=== PATIENT | male | born 1945 | race Caucasian/White ===

== ENCOUNTER → 2020-09-25 16:15 | Outpatient (CLI) | payer MEDICARE, OTHER, SELFPAY ==
[2020-09-25 17:47] LABS: BNP,B-Type NATRIURETIC PEPTIDE 11.2 pg/mL (0-100)
== END ==
PROVIDERS: PCP Family Medicine; Visit Provider Family Medicine
DX: R06.00 Dyspnea, unspecified (principal)
CPT/HCPCS: 83880

== ENCOUNTER → 2020-10-02 11:27 | Outpatient (CLI) | payer MEDICARE, OTHER, SELFPAY ==
--- NOTE | 2020-10-02 11:31 | RAD_ITS ---
STUDY: X-RAY CHEST REASON FOR EXAM: Male, 75 years old. WHEEZING TECHNIQUE: PA and lateral views of the chest. COMPARISON: None. FINDINGS: The lungs are clear and expanded. There is no demonstrated pleural abnormality. Normal size heart. Normal mediastinum and cecelia. Normal visualized pulmonary arteries. Normal visualized aortic arch and descending thoracic aorta. Normal visualized thoracic spine. Normal visualized ribs, clavicles, and shoulders. There is no demonstrated abnormality of the visualized soft tissue structures of the upper abdomen. RAD/Chest PA and Lateral IMPRESSION: Normal x-ray examination of the chest. Electronically Signed: Jayant Lott MD at 9:14 EST Tel , Service support ,
== END ==
PROVIDERS: PCP Family Medicine; Referring Provider Family Medicine; Visit Provider Family Medicine
DX: R06.2 Wheezing (principal)
CPT/HCPCS: 71046

== ENCOUNTER → 2020-12-14 08:52 | Outpatient (CLI) | payer MEDICARE, OTHER, SELFPAY ==
--- NOTE | 2020-12-15 10:02 | PFT ---
INTRODUCTION: The patient is a 75-year-old male that presents for pulmonary function studies secondary to a diagnosis of wheezing. Respiratory therapy reports good patient effort. Bronchodilators were used during testing. INTERPRETATION: Forced expiration spirometry demonstrates no evidence of a large airways obstructive ventilatory defect. There was no significant response to aerosolized bronchodilators. Spirograms are of good quality and plateau normally. Body plethysmography was performed and reveals lung volumes to be within normal limits. Diffusing capacity by single breath CO is similarly within normal limits. IMPRESSION: Grossly normal pulmonary function studies.
== END ==
PROVIDERS: PCP Family Medicine; Referring Provider Family Medicine; Visit Provider Family Medicine
DX: R06.2 Wheezing (principal)
CPT/HCPCS: 94060; 94726; 94729

== ENCOUNTER → 2021-03-30 08:04 | Outpatient (CLI) | payer MEDICARE, OTHER, SELFPAY ==
[2021-03-30 07:10] VITALS: BMI 32.6
[2021-03-30 08:29] LABS: Absolute Lymphocyte Count 1.54 X10^3/uL (0.83-4.51); Basophil# 0.05 X10^3/uL; Basophil% 0.8 % (0-1); Eosinophil# 0.21 X10^3/uL; Eosinophils% 3.3 % (0-5); Hematocrit 44.8 % (40-54); Hemoglobin 15.7 g/dL (13.0-16.5); Lymphocyte # 1.54 X10^3/ul (0.83-4.51); Lymphocyte % 24.4 % (19-41); Mean Corpuscular Hgb 31.4 pg (27.0-32.0); Mean Corpuscular Volume 89.6 fL (80-94); Mean Platelet Vol. 10.1 fl (6.2-12.0); Monocyte# 0.53 X10^3/uL; Monocyte% 8.4 % (0-10); NRBC Flagged by Analyzer 0 % (0-5); Neutrophil # 3.98 X10^3/uL (2.7-7.7); Neutrophil % 62.9 % (47-70); Platelet Count 231 K/mm3 (150-450); RBC Distribution Width CV 13.2 % (11.6-14.6); RBC Distribution Width SD 43.1 fl (35.1-43.9); White Blood Count 6.3 K/mm3 (4.4-11.0)
[2021-04-02 08:08] LABS: Alternaria tenuis <0.10 kU/L (Class 0); Ash, White <0.10 kU/L (Class 0); Aspergillus fumigatus <0.10 kU/L (Class 0); Bermuda Grass <0.10 kU/L (Class 0); Birch <0.10 kU/L (Class 0); Black Walnut <0.10 kU/L (Class 0); Cat Hair / Dander,Stand <0.10 kU/L (Class 0); Cedar, Mountain <0.10 kU/L (Class 0); Cladosporium herbarum <0.10 kU/L (Class 0); Cockroach, American <0.10 kU/L (Class 0); Cottonwood <0.10 kU/L (Class 0); D farinae Mite <0.10 kU/L (Class 0); D pteronyssinus <0.10 kU/L (Class 0); Dog Epithelia <0.10 kU/L (Class 0); Elm, American White <0.10 kU/L (Class 0); Immunoglobulin E 27 IU/mL (6-495); Maple/Box Elder <0.10 kU/L (Class 0); Mulberry, White <0.10 kU/L (Class 0); Oak, White <0.10 kU/L (Class 0); Pecan <0.10 kU/L (Class 0); Penicillium Notatum <0.10 kU/L (Class 0); Pigweed, Rough <0.10 kU/L (Class 0); Ragweed, Short/Common <0.10 kU/L (Class 0); Russian Thistle <0.10 kU/L (Class 0); Sheep Sorrel <0.10 kU/L (Class 0); Sycamore, American <0.10 kU/L (Class 0); Timothy Grass <0.10 kU/L (Class 0)
[2021-04-02 08:40] LABS: Mouse Urine <0.10 kU/L (Class 0)
[2021-04-02 20:07] LABS: Aspirgillus flavus Negative (Neg:<1:1); Aspirgillus fumigatus Negative (Neg:<1:1); Aspirgillus niger Negative (Neg:<1:1)
[2021-04-02 20:34] LABS: Immunoglobulin E 27 IU/mL (6-495)
== END ==
PROVIDERS: PCP Family Medicine; Referring Provider Internal Medicine Critical Care Medicine; Visit Provider Internal Medicine Critical Care Medicine
DX: R06.2 Wheezing (principal)
CPT/HCPCS: 36415; 82785; 85025; 86003; 86606

== ENCOUNTER → 2021-04-12 08:03 | Outpatient (CLI) | payer MEDICARE, OTHER, SELFPAY ==
[2021-03-30 07:10] VITALS: BMI 32.6
--- NOTE | 2021-04-12 15:16 | PFTCOMP ---
COMPLETE PULMONARY FUNCTION TEST INTERPRETATION Brief HPI: Patient is a 76 year old male, currently under the care of Dr. Redmond, who presents to [facility] for complete pulmonary function tests secondary to diagnosis of wheezing. Respiratory therapist reports good effort and reproducible results. Interpretation: Forced expiration spirometry shows no large airways obstructive ventilatory defect with an FEV1 of 97% predicted. There is no significant bronchodilator response by strict ATS criteria. Spirograms are of good quality and plateau normally. The respiratory flow volume loop shows a normal pattern. Lung volumes by body plethysmography show a normal total lung capacity at 5.95 L, 100% predicted. All other lung volumes are within normal limits. Diffusion capacity by carbon monoxide is normal at 112% predicted. The airway resistance is normal. Compared to previous pulmonary function tests from 12/14/2020, there is been a significant improvement in air trapping with hyperinflation. Impression: These pulmonary function tests are within normal limits
== END ==
PROVIDERS: PCP Family Medicine; Referring Provider Internal Medicine Critical Care Medicine; Visit Provider Internal Medicine Critical Care Medicine
DX: R06.2 Wheezing (principal)
CPT/HCPCS: 94060; 94726; 94729

== ENCOUNTER → 2021-05-07 | Outpatient (CLI) | payer MEDICARE, OTHER, SELFPAY | END | disposition home or self-care (01) | LOC: LABSPEC 08:13 | PROVIDERS: PCP Family Medicine; Visit Provider Family Medicine | DX: U07.1 COVID-19 (principal) | CPT/HCPCS: 87635; U0005; U0003 ==

== ENCOUNTER 2021-11-29 09:58 | Outpatient (CLI) | payer MEDICARE, OTHER, SELFPAY ==
--- NOTE | 2021-11-29 10:01 | RAD_ITS ---
STUDY: X-RAY - LUMBAR SPINE REASON FOR EXAM: Male, 76 years old. CHRONIC LOW BACK PAIN TECHNIQUE: 5 view(s) of the lumbar spine were obtained. COMPARISON: None FINDINGS: Normal lumbar lordosis. There is no substantial scoliosis. There is a normal alignment of the vertebrae. Multilevel degenerative changes with facet hypertrophy worst in the lower lumbar spine contributing to neuroforaminal narrowing worst at L5-S1. Normal vertebral bodies and endplates. Normal disc space heights. Atherosclerotic calcifications. Mild to moderate increased stool. RAD/L/S Spine Min 4 Views IMPRESSION: No acute fracture or subluxation. Multilevel degenerative changes worst at L5-S1. Electronically Signed: Torrey Kirk MD at 2:35 EDT ,
== END 2021-11-29 23:59 | disposition home or self-care (01) ==
LOC: MTRAD 10:00
PROVIDERS: PCP Family Medicine; Referring Provider Family Medicine; Visit Provider Family Medicine
DX: M54.50 Low back pain, unspecified (principal); G89.29 Other chronic pain
CPT/HCPCS: 72110

== ENCOUNTER 2022-09-03 06:20 | Emergency (ER) | payer MEDICARE, OTHER, SELFPAY ==
[2022-09-03 06:21] VITALS: PULSE 75; RESP 15; TEMP 36.4; O2SAT 98; BMI 34.0
[2022-09-03 06:22] VITALS: BP 132/78; PULSE 69; RESP 15; TEMP 36.4; O2SAT 98
--- NOTE | 2022-09-03 06:37 | EDS_ITS ---
HPI <Dr. Sean Diaz MD - Last Filed: 09/05/22 09:22> History of Present Illness Chief Complaint: Complaint Detail of Chief Complaint: Concern for bladder infection Informant: patient Onset/Context/Timing Onset: Yesterday Context: Sudden Onset Timing: Continuous Quality: Pressure fullness suprapubic area and difficulty urinating Current Severity: Mild Maximum Severity: Moderate Worsened by: Palpation Relieved by: Nothing Associated Symptoms Associated Symptoms: Denies fever or chills. Endorses nausea without vomiting. Narrative Narrative: Patient is a 77-year-old male with history of BPH, hypercholesterolemia who presents because of concern for urinary tract infection. He states he has not had a urinary tract infection in some time. He denies history of prostatitis. He denies scrotal pain or swelling. He denies headache, visual, ocular auditory symptoms. He denies cardiac or respiratory symptoms. He denies vomiting or diarrhea. He states he has had difficulty urinating the past 24 to 48 hours. Prior similar symptoms: Yes Recent Illness/Hospitalization: No PFSH <Dr. Sean Diaz MD - Last Filed: 09/05/22 09:22> [facility] Medical History (Updated 09/03/22 @ 08:[address] Vel Aragon MD) Diverticulitis Urinary tract infection Home Medications atorvastatin 10 mg tablet 10 mg PO DAILY 03/23/21 [History Last Taken Unknown] d-mannose 500 mg capsule 500 mg PO DAILY 03/30/21 [History Last Taken Unknown] pyridoxine (vitamin B6) 100 mg tablet (Vitamin B-6) 100 mg PO DAILY 03/30/21 [History Last Taken Unknown] tamsulosin 0.4 mg capsule 0.4 mg PO BID 03/30/21 [History Last Taken Unknown] cetirizine 10 mg capsule 10 mg PO HS #30 caps 07/06/21 [Rx Last Taken Unknown] montelukast 10 mg tablet 10 mg PO QPM #90 tabs 08/03/22 [Rx Last Taken Unknown] ciprofloxacin HCl 500 mg tablet (Cipro) 500 mg PO BID #20 tabs 09/03/22 [Rx Last Taken Unknown] metronidazole 500 mg tablet 500 mg PO TID #30 tabs 09/03/22 [Rx Last Taken Unknown] oxycodone-acetaminophen 5 mg-325 mg tablet (Percocet) 1 tab PO Q8H PRN pain 3 days #12 tabs 09/03/22 [Rx Last Taken Unknown] Allergy/AdvReac Type Severity Reaction Status Date / Time No Known Allergies Allergy Unverified 08/03/22 13:39 Family History Sister Cancer Breast, Colon Brother Cancer Prostate Surgical History History of total knee replacement (TKR) Social History (Updated 09/03/22 @ 06:[address] Sean Diaz MD) household members: spouse Smoking Status: Never smoker substance use type: does not use ROS <Dr. Sean Diaz MD - Last Filed: 09/05/22 09:22> ROS ED Constitutional Constitutional ED: Denies chills, fever(s), subjective or sweats Eyes Eyes: Denies blurry vision or change in vision ENT ENT ED: Denies rhinorrhea or sore throat Cardiovascular Cardiovascular: Denies chest pain or palpitations Respiratory/Chest Respiratory/Chest: Denies cough, dyspnea or dyspnea on exertion Gastrointestinal Gastrointestinal: Reports abdominal pain and nausea; Denies diarrhea or vomiting Genitourinary Genitourinary ED: Reports other Details: Per HPI narrative ; Denies dysuria, hematuria or urinary frequency Musculoskeletal Musculoskeletal: Denies arthralgias or back pain Integumentary Denies Abrasions or rash Neurologic Neurologic: Denies paresthesias or weakness Hematologic/Lymphatic Hematologic/Lymphatic: Reports systems reviewed and no addt'l complaints, except as documented EXAM <Dr. Sean Diaz MD - Last Filed: 09/05/22 09:22> Physical Exam Const Vital Signs: 09/03/22 06:21 09/03/22 06:22 Temperature 97.6 F L 97.6 F L Temperature Source Temporal Temporal Pulse Rate 75 69 Respiratory Rate 15 15 Blood Pressure 132/78 H Blood Pressure Mean 96 Pulse Ox 98 98 Oxygen Delivery Method Room Air Room Air Positive well nourished, well developed and obese Constitutional Narrative: Patient is hard of hearing. General Appearance ED: well developed and NAD; Negative for cyanotic, diaphoretic or pallor Nutritional Appearance: obese HEENT Reports moist mucous membranes HEENT Narrative: Head is atraumatic normocephalic. Ears are normal. Nares patent. Uvula is midline. Eyes PERRL and EOMs intact bilaterally General Eye ED: Negative for pale conjunctiva or scleral icterus Neck no lymphadenopathy, supple and no JVD Chest Wall inspection of chest normal and palpation of chest normal Resp normal respiratory effort and clear to auscultation bilaterally Cardio regular rate, regular rhythm, S1 normal heart sound, S2 normal heart sound and no murmurs GI normal to inspection, nondistended, normoactive bowel sounds and no masses; Negative for non-tender, non-distended or hepatosplenomegaly GI Narrative: Slight tympany to percussion. Palpation: soft and tender suprapubic Back/Spine no CVA tenderness Thoracic Spine / Upper Back: Negative for thoracic spinal tenderness Lumbar Spine / Lower Back: Negative for lumbar spinal tenderness Extremity normal to inspection General Extremety ED: Negative for edema or tenderness General Extremity: Negative for edema Neuro oriented x3, CN's II-XII intact bilaterally and no sensory deficits noted Sensorium / Orientation: alert Psych mental status grossly normal Skin no rashes or lesions noted, no wounds and skin turgor normal General Skin Exam: Negative for jaundice or pallor <Dr. Vel Aragon MD - Last Filed: 09/03/22 08:10> Physical Exam Const Vital Signs: 09/03/22 06:21 09/03/22 06:22 Temperature 97.6 F L 97.6 F L Temperature Source Temporal Temporal Pulse Rate 75 69 Respiratory Rate 15 15 Blood Pressure 132/78 H Blood Pressure Mean 96 Pulse Ox 98 98 Oxygen Delivery Method Room Air Room Air MDM <Dr. Sean Diaz MD - Last Filed: 09/05/22 09:22> [facility] MDM Narrative Medical decision making narrative: With history of BPH need to assess for urinary retention will obtain bladder scan. Because of patient's concern is infection will obtain UA to assess for infection. Basic metabolic panel was obtained to assess for renal function and CBC to assess white count differential. Patient's white count is slightly elevated. Urine reveals no evidence of infection. Bladder scan was negative. Patient was reassessed. His area of maximal tenderness is in the proximity McBurney's point. With right lower quadrant pain elevated white count will obtain CT of the abdomen pelvis to evaluate for appendicitis versus right-sided diverticulitis versus other cause. Lab Data Attestation: I reviewed the patient's lab results. Lab results narrative: White count is slightly elevated with shift. There is no bandemia. Basic metabolic panel was unremarkable. Urine a is negative. Labs: Laboratory Results - last 24 hr 09/03/22 09/03/22 09/03/22 06:34 06:34 06:34 WBC 11.5 H RBC 4.84 Hgb 15.3 Hct 43.8 MCV 90.5 MCH 31.6 MCHC 34.9 RDW Std Deviation 43.1 RDW Coeff of Maggie 13.1 Plt Count 208 MPV 10.1 Immature Gran % (Auto) 0.400 Neut % (Auto) 74.2 H Lymph % (Auto) 15.8 L Morton % (Auto) 8.4 Eos % (Auto) 0.9 Baso % (Auto) 0.3 Absolute Neuts (auto) 8.5 H Absolute Lymphs (auto) 1.82 Nucleated RBC % 0 Sodium 140 Potassium 3.8 Chloride 108 H Carbon Dioxide 28.0 Anion Gap 4 L BUN 9 Creatinine 0.81 Estim Creat Clear Calc 73.89 Est GFR (MDRD) Af Amer 119 Est GFR (MDRD) Non-Af 99 BUN/Creatinine Ratio 11.2 Glucose 139 H Calcium 8.7 Urine Color Yellow Urine Clarity Clear Urine pH 5.0 Ur Specific [place] 1.020 Urine Protein 15 H Urine Glucose (UA) Normal Urine Ketones Negative Urine Occult Blood Negative Urine Nitrite Negative Urine Bilirubin Negative Urine Urobilinogen Normal Ur Leukocyte Esterase Negative Urine RBC 0 SEEN Urine WBC 0 SEEN Ur Squamous Epith Cells 0 SEEN Urine Bacteria 0 SEEN Urine Mucus 0 SEEN Radiography Diagnostic Testing: Clinical Impression(s) from Imaging Studies Abdomen/Pelvis CT 09/03/22 07:08 IMPRESSION: Sigmoid diverticulitis without evidence of abscess or free air. Electronically Signed: Taryn Núñez MD at 7:52 EST , <Dr. Vel Aragon MD - Last Filed: 09/03/22 08:10> [facility] MDM Narrative Medical decision making narrative: With history of BPH need to assess for urinary retention will obtain bladder scan. Because of patient's concern is infection will obtain UA to assess for infection. Basic metabolic panel was obtained to assess for renal function and CBC to assess white count differential. Patient's white count is slightly elevated. Urine reveals no evidence of infection. Bladder scan was negative. Patient was reassessed. His area of maximal tenderness is in the proximity McBurney's point. With right lower quadrant pain elevated white count will obtain CT of the abdomen pelvis to evaluate for appendicitis versus right-sided diverticulitis versus other cause. Margo- Patient was turned over to me. I evaluated the patient most of his pain is mid abdomen and left lower quadrant. He is found to have diverticulitis on CT. There is no evidence of any kind of abscess or complication, he has mild leukocytosis but otherwise normal vitals I believe he can be treated outpatient. I will discharge him with antibiotics and analgesics. He received analgesics and antibiotics in the emergency department. See below MDM MDM: A. Problems addressed ( does not have to be diagnoses) Patient had urinary symptoms, he has abdominal pain and diverticulitis, he was assessed for the potential of B. Amount and/or complexity of the data: 1. Review of the results of each test Blood work was ordered by prior ED doctor, was interpreted by me and prior ED doctor. Patient has leukocytosis I discussed the patient with his who was in the room 2. Independent interpretation of test CT abdomen and pelvis was interpreted by me and radiologist as diverticulitis. I do not see appendicitis. Bladder scan was negative for obstruction. C. Risk of complications and/or morbidity I have thought about admitting the patient, however the patient is stable he has mild leukocytosis, and does not have an abscess. His pain is also controlled. Patient received antibiotics and analgesics as above. Lab Data Labs: Laboratory Results - last 24 hr 09/03/22 09/03/22 09/03/22 06:34 06:34 06:34 WBC 11.5 H RBC 4.84 Hgb 15.3 Hct 43.8 MCV 90.5 MCH 31.6 MCHC 34.9 RDW Std Deviation 43.1 RDW Coeff of Maggie 13.1 Plt Count 208 MPV 10.1 Immature Gran % (Auto) 0.400 Neut % (Auto) 74.2 H Lymph % (Auto) 15.8 L Morton % (Auto) 8.4 Eos % (Auto) 0.9 Baso % (Auto) 0.3 Absolute Neuts (auto) 8.5 H Absolute Lymphs (auto) 1.82 Nucleated RBC % 0 Sodium 140 Potassium 3.8 Chloride 108 H Carbon Dioxide 28.0 Anion Gap 4 L BUN 9 Creatinine 0.81 Estim Creat Clear Calc 73.89 Est GFR (MDRD) Af Amer 119 Est GFR (MDRD) Non-Af 99 BUN/Creatinine Ratio 11.2 Glucose 139 H Calcium 8.7 Urine Color Yellow Urine Clarity Clear Urine pH 5.0 Ur Specific [place] 1.020 Urine Protein 15 H Urine Glucose (UA) Normal Urine Ketones Negative Urine Occult Blood Negative Urine Nitrite Negative Urine Bilirubin Negative Urine Urobilinogen Normal Ur Leukocyte Esterase Negative Urine RBC 0 SEEN Urine WBC 0 SEEN Ur Squamous Epith Cells 0 SEEN Urine Bacteria 0 SEEN Urine Mucus 0 SEEN Radiography Diagnostic Testing: Clinical Impression(s) from Imaging Studies Abdomen/Pelvis CT 09/03/22 07:08 IMPRESSION: Sigmoid diverticulitis without evidence of abscess or free air. Electronically Signed: Taryn Núñez MD at 7:52 EST Reading Location ID and State: [facility] / [place] Tel , Service support , Discharge Plan Triage Chief Complaint: Complaint ED Provider: Sean Diaz Dx/Rx/DC Orders Clinical Impression: Diverticulitis, Benign prostatic hyperplasia, Abdominal pain Instructions: Diverticulitis Dc Prescriptions: New oxycodone-acetaminophen [Percocet] 5-325 mg tablet 1 tab PO Q8H PRN (Reason: pain) 3 Days Qty: 12 0RF metronidazole 500 mg tablet 500 mg PO TID Qty: 30 0RF ciprofloxacin HCl [Cipro] 500 mg tablet 500 mg PO BID Qty: 20 0RF No Action atorvastatin 10 mg tablet 10 mg PO DAILY tamsulosin 0.4 mg capsule 0.4 mg PO BID pyridoxine (vitamin B6) [Vitamin B-6] 100 mg tablet 100 mg PO DAILY d-mannose 500 mg capsule 500 mg PO DAILY cetirizine 10 mg capsule 10 mg PO HS Qty: 30 11RF montelukast 10 mg tablet 10 mg PO QPM Qty: 90 3RF Primary Care Provider: Vito Noyola Referrals: Vito Noyola DO [Primary Care Provider] - 3-5 Days Disposition Disposition: Home, Self Care Discharge Date/Time: 09/03/22 08:53
[2022-09-03 06:46] LABS: Bacteria 0 SEEN /hpf (None Seen); Mucous, Urine 0 SEEN /hpf (<or=2+); Red Blood Cells-Urine 0 SEEN /hpf (0-5); Squamous Epithelial Cells - UA 0 SEEN /hpf (0-5); White Blood Cells 0 SEEN /hpf (0-5)
[2022-09-03 06:48] LABS: Absolute Lymphocyte Count 1.82 X10^3/uL (0.83-4.51); Absolute Neutrophil Count 8.5 X10^3/uL (2.0-7.7); Basophil# 0.03 X10^3/uL; Basophil% 0.3 % (0-1); Eosinophils% 0.9 % (0-5); Hematocrit 43.8 % (40-54); Hemoglobin 15.3 g/dL (13.0-16.5); Lymphocyte # 1.82 X10^3/ul (0.83-4.51); Lymphocyte % 15.8 % (19-41); Mean Corp Hgb Conc 34.9 g/dL (32-36); Mean Corpuscular Hgb 31.6 pg (27.0-32.0); Mean Corpuscular Volume 90.5 fL (80-94); Mean Platelet Vol. 10.1 fl (6.2-12.0); Monocyte# 0.97 X10^3/uL; Monocyte% 8.4 % (0-10); NRBC Flagged by Analyzer 0 % (0-5); Neutrophil # 8.54 X10^3/uL (2.7-7.7); Neutrophil % 74.2 % (47-70); Platelet Count 208 K/mm3 (150-450); RBC Distribution Width CV 13.1 % (11.6-14.6); RBC Distribution Width SD 43.1 fl (35.1-43.9); Red Blood Count 4.84 M/mm3 (4.6-6.2); White Blood Count 11.5 K/mm3 (4.4-11.0)
[2022-09-03 06:51] LABS: Color, Urine Yellow (Yellow); Glucose, Dipstick Normal (Normal); Ketone-Dipstick Negative (Negative); Leukocyte Esterase-Dipstick Negative /ul (Negative); Nitrite-Dipstick Negative (Negative); Occult Blood-Urine Negative /ul (Negative); Protein-Dipstick 15 mg/dl (Negative); Urine Bilirubin Dipstick Negative (Negative); Urine Clarity Clear (Clear); Urine Urobilinogen Normal (Normal)
[2022-09-03 07:00] LABS: Anion Gap 4 (5-15); BUN 9 mg/dL (7-18); BUN/Creat Ratio 11.2 RATIO (10-20); Calcium,Total 8.7 mg/dL (8.5-10.1); Chloride 108 mmol/L (98-107); Creatinine, Serum 0.81 mg/dL (0.70-1.30); EST Glomerular Filtration Rate 99 mL/min (>60); Est Glom Filt Rate - Afr Amer 119 mL/min (>60); Estimated Creatinine Clearance 73.89 ml/min; Glucose 139 mg/dL (74-106); Potassium 3.8 mmol/L (3.5-5.1); Sodium Level 140 mmol/L (136-145)
--- NOTE | 2022-09-03 07:08 | CT_ITS ---
STUDY: CT ABDOMEN AND PELVIS WITH CONTRAST REASON FOR EXAM: Male, 77 years old. Right lower quadrant pain RADIATION DOSAGE (If Supplied By Facility): CTDIvol = ( 21.23 ) mGy, DLP = ( 1374.10 ) mGycm TECHNIQUE: Transaxial images were obtained from the dome of the diaphragm to the symphysis pubis without oral contrast. IV 100mL Isovue-370 was administered. Sagittal and coronal images were reconstructed. Individualized dose optimization techniques were used for this CT. COMPARISON: None. FINDINGS: The visualized lung bases are unremarkable. The visualized portions of the heart are within normal limits. Normal liver. Normal gallbladder and extrahepatic biliary system. Normal spleen. Normal pancreas. Normal bilateral adrenal glands. There are bilateral renal cysts the largest measures 2.5 cm and is in right kidney. Normal visualized stomach. Normal small intestine. There is diverticulosis, with thickening of the sigmoid colon wall, and pericolonic inflammation changes consistent with acute diverticulitis. The appendix is visualized and appears normal. Normal abdominal aorta. Normal inferior vena cava. Normal retroperitoneum. Normal urinary bladder. Normal abdominal wall. Normal osseous structures. CT/Abdomen/Pelvis W IV Cont ONLY IMPRESSION: Sigmoid diverticulitis without evidence of abscess or free air. Electronically Signed: Taryn Núñez MD at 7:52 EST ,
[2022-09-03] MEDS: Ondansetron 4 MG/2 ML Vial IV (08:15)
[2022-09-03] MEDS: Morphine 4 MG/ML Syringe IV (08:18)
[2022-09-03] MEDS: Ciprofloxacin 500 MG Tablet PO (08:19)
[2022-09-03] MEDS: metroNIDAZOLE 500 MG Tablet PO (08:19)
[2022-09-03 08:45] VITALS: BP 126/78; PULSE 56; RESP 16; O2SAT 96
== END 2022-09-03 08:53 | disposition home or self-care (01) ==
PROVIDERS: Emergency Provider Emergency Medicine; PCP Family Medicine; Visit Provider Emergency Medicine
DX: N40.1 Benign prostatic hyperplasia with lower urinary tract symptoms (principal); R33.8 Other retention of urine; K57.32 Diverticulitis of large intestine without perforation or abscess without bleeding; E78.00 Pure hypercholesterolemia, unspecified; E66.9 Obesity, unspecified; Z68.34 Body mass index [BMI] 34.0-34.9, adult; Z79.899 Other long term (current) drug therapy; Z87.440 Personal history of urinary (tract) infections
CPT/HCPCS: 74177; 80048; 81001; 85025; 96374; 96375; 99283; Q9967; A4216; J2405

== ENCOUNTER → 2022-09-05 | Outpatient (CLI) | payer MEDICARE, OTHER, SELFPAY ==
--- NOTE | 2022-09-05 09:08 | RAD_ITS ---
INDICATION: PAIN EXAMINATION/TECHNIQUE: X-RAY - XR Spine Cervical 4 or 5 Views COMPARISON: None. FINDINGS: The vertebral bodies are normal in height. No definite fracture demonstrated. Minimal anterior subluxation C4 forward on C5. Disc space narrowing with osteophytes from C3 to C7. Facet arthropathy at multiple levels. Suboptimal oblique views suggest left neural foraminal encroachment at multiple levels from C3-4 through C6-7. Likely mild neural foraminal encroachment on the right C4-5. Prevertebral soft tissues are unremarkable. RAD/Cerv Spine 4 or 5 Views IMPRESSION: No evidence of fracture or traumatic subluxation. Degenerative changes with minimal anterolisthesis C4-5. Probable multilevel neural foraminal encroachment. Electronically Signed: Ana Hernandez MD at 6:58 EST ,
== END | disposition home or self-care (01) ==
LOC: MTRAD 09:05
PROVIDERS: PCP Family Medicine; Referring Provider Nurse Practitioner Family; Visit Provider Nurse Practitioner Family
DX: M50.321 Other cervical disc degeneration at C4-C5 level (principal)
CPT/HCPCS: 72050

== ENCOUNTER → 2023-08-18 | Outpatient (CLI) | payer MEDICARE, OTHER, SELFPAY ==
--- NOTE | 2023-08-18 11:51 | RAD_ITS ---
STUDY: X-RAY - LUMBAR SPINE REASON FOR EXAM: Male, 78 years old. Low back pain. TECHNIQUE: 4 view(s) of the lumbar spine were obtained. COMPARISON: November 2021 FINDINGS: Osteopenia. Slight increased lordosis. No scoliosis. 1 cm of anterolisthesis of L4 on L5, new since the comparison study. Diffuse moderate to marked lower thoracic and lumbosacral facet sclerosis. Mild intervertebral disc space narrowing with small osteophytes, unchanged. Vascular calcification. RAD/L/S Spine Min 4 Views IMPRESSION: Stable osteopenia with diffuse lower thoracic and lumbosacral spondylosis. No acute abnormality. Electronically Signed: Ketan Leon MD at 13:21 EST ,
== END | disposition home or self-care (01) ==
LOC: MTRAD 11:49
PROVIDERS: PCP Family Medicine; Referring Provider Family Medicine; Visit Provider Family Medicine
DX: M51.36 Other intervertebral disc degeneration, lumbar region (principal)
CPT/HCPCS: 72110

== ENCOUNTER → 2023-10-02 | Outpatient (CLI) | payer MEDICARE, OTHER, SELFPAY ==
--- NOTE | 2023-10-02 06:35 | MRI_ITS ---
HISTORY: NECK PAIN. TECHNIQUE: Multiplanar and multisequence MR images of the cervical spine were obtained without contrast. 282 images. COMPARISON: XR 09/05/2022. FINDINGS: VERTEBRAE: Vertebral body heights maintained. Mild degenerative endplate changes at multiple levels, particularly C5-6 and C6-7. No other significant bone marrow signal abnormality. VERTEBRAL ALIGNMENT: Chronic 2 mm anterolisthesis of C4-5. SPINAL CORD: Cervical cord signal and morphology within normal limits. SOFT TISSUES: No prevertebral fluid collection. INTERVERTEBRAL DISCS: C2-3: No significant posterior disc protrusion, central canal stenosis, or foraminal narrowing. C3-4: Mild posterior disc bulge osteophyte complex with uncovertebral and facet arthropathy resulting in mild central canal stenosis and bilateral foraminal narrowing. C4-5: No significant posterior disc protrusion, central canal stenosis, or foraminal narrowing. C5-6: Mild posterior disc bulge osteophyte complex with uncovertebral and facet arthropathy resulting in minimal narrowing of the thecal sac and mild bilateral foraminal narrowing. C6-7: Mild posterior disc bulge osteophyte complex resulting in minimal narrowing of the thecal sac. No significant foraminal narrowing. C7-T1: No significant posterior disc protrusion, central canal stenosis, or foraminal narrowing. MRI/Spine Cervical (Routine) IMPRESSION: Mild multilevel degenerative disc disease in the cervical spine as above. Electronically Signed: Antonia Farrell MD at 9:36 EST ,
--- NOTE | 2023-10-02 06:35 | MRI_ITS ---
HISTORY: Low back pain. TECHNIQUE: Multiplanar and multisequence MR images of the lumbar spine were obtained without intravenous contrast. 144 images. COMPARISON: XR 08/18/2023, CT 09/03/2022. FINDINGS: VERTEBRAE: Transitional L5 lumbosacral vertebra with a rudimentary disc at L5-S1. Vertebral body heights maintained. Degenerative bone marrow endplate changes, particularly at L1-2 and L3-4 with Schmorl''s nodes. ALIGNMENT: 2 mm anterolisthesis of L3-4, similar to prior CT. CONUS: Normal morphology and position of the conus medullaris at the lower T12 level. INTERVERTEBRAL DISCS: T11-12, T12-L1: Very mild disc bulges with facet arthropathy. No significant central canal stenosis or foraminal narrowing based on the sagittal images. L1-2: Mild disc bulge with facet arthropathy resulting in minimal narrowing of the thecal sac and mild left foraminal narrowing. L2-3: Mild disc bulge with facet arthropathy superimposed on a developmentally narrow spinal canal resulting in mild central canal stenosis and left foraminal narrowing. L3-4: Mild disc bulge with facet arthropathy superimposed on a developmentally narrow spinal canal resulting in moderate central canal stenosis, bilateral L4 nerve root abutment, and moderate bilateral foraminal narrowing. L4-5: Mild disc bulge with facet arthropathy resulting in minimal narrowing of the thecal sac, mild left, and mild-moderate right foraminal narrowing. L5-S1: Rudimentary disc without significant posterior disc protrusion, central canal stenosis, or foraminal narrowing. SOFT TISSUES: Mild posterior subcutaneous edema. Right renal cysts again seen. MRI/Spine Lumbar (Routine) IMPRESSION: Multilevel degenerative disc disease as above. Electronically Signed: Antonia Farrell MD at 8:59 EST ,
== END | disposition home or self-care (01) ==
LOC: MRI 06:12
PROVIDERS: PCP Family Medicine
DX: M54.50 Low back pain, unspecified (principal)
CPT/HCPCS: 72141; 72148

== ENCOUNTER → 2023-12-22 | Outpatient (CLI) | payer MEDICARE, OTHER, SELFPAY ==
--- NOTE | 2023-12-22 08:56 | EKG12_ITS ---
Test Reason : PRE OP Blood Pressure : / mmHG Vent. Rate : 050 BPM Atrial Rate : 050 BPM P-R Int : 156 ms QRS Dur : 084 ms QT Int : 436 ms P-R-T Axes : 035 -15 026 degrees QTc Int : 397 ms Sinus bradycardia Otherwise normal ECG Confirmed by ANISH WORTHY, SIMRAN ([id number]), primer expeditor and drier KARY PEREZ ([id number]) on 12/25/2023 10:36:52 AM Referred By: DARLENE DA SILVA Confirmed By:FRANK OCONNELL MD
[2023-12-22 09:39] LABS: Hematocrit 44.7 % (40-54); Hemoglobin 15.6 g/dL (13.0-16.5); Mean Corp Hgb Conc 34.9 g/dL (32-36); Mean Corpuscular Hgb 31.6 pg (27.0-32.0); Mean Corpuscular Volume 90.7 fL (80-94); Mean Platelet Vol. 10.4 fl (6.2-12.0); Platelet Count 221 K/mm3 (150-450); RBC Distribution Width CV 12.8 % (11.6-14.6); RBC Distribution Width SD 43.3 fl (35.1-43.9); Red Blood Count 4.93 M/mm3 (4.6-6.2); White Blood Count 7.1 K/mm3 (4.4-11.0)
[2023-12-22 09:57] LABS: Anion Gap 2 (5-15); BUN 13 mg/dL (7-18); BUN/Creat Ratio 15.8 RATIO (10-20); Calcium,Total 9.1 mg/dL (8.5-10.1); Chloride 110 mmol/L (98-107); Creatinine, Serum 0.82 mg/dL (0.70-1.30); EST Glomerular Filtration Rate 96 mL/min (>60); Est Glom Filt Rate - Afr Amer 116 mL/min (>60); Glucose 119 mg/dL (74-106); Potassium 4.6 mmol/L (3.5-5.1); Sodium Level 141 mmol/L (136-145)
== END | disposition home or self-care (01) ==
PROVIDERS: PCP Family Medicine
DX: Z01.812 Encounter for preprocedural laboratory examination (principal)
CPT/HCPCS: 36415; 80048; 85027; 93005

== ENCOUNTER 2024-01-23 05:36 | Emergency (ER) | payer MEDICARE, OTHER, SELFPAY ==
[2024-01-23 05:37] VITALS: BP 172/70; PULSE 62; RESP 18; TEMP 36.2; O2SAT 96; BMI 33.4
--- NOTE | 2024-01-23 05:58 | ED.VIS.BACK ---
HPI History of Present Illness Chief Complaint: Back Informant: patient and spouse/S.O. Onset/Context/Timing Onset: Days Context: Gradual Onset Timing: Continuous Quality: Dull and Aching Location: Lumbar Current Severity: Moderate Maximum Severity: Moderate Worsened by: improves with Movement Relieved by: Nothing Associated Symptoms Associated Symptoms: Numbness and Tingling; Negative for Fever, Abdominal Pain, Dysuria, Unable to Ambulate, Unable to Transfer, Urinary Retention, Urinary Incontinence, Constipation or Fecal Incontinence Narrative Narrative: 78-year-old male status post both cervical and lumbar spine surgery done by a Dr. Walden in [place], [place]. Patient believes he has a fusion of lumbar 2, 3 and 4. He said he was doing well after the surgery the surgery was on the . This past Monday he bent over so he did not have any initial pain but since then he has had progressively worsening pain in his back. And numbness and tingling in his feet. He says legs just feel heavy. Denies any bowel or bladder incontinence. Said he is urinating well. Denies any fever. No fall or trauma. Prior similar symptoms: Yes Recent Illness/Hospitalization: Yes [facility] Medical History Urinary tract infection Diverticulitis Home Medications ?Medication ?Instructions ?Recorded ?Last Taken ?Type atorvastatin 10 mg tablet 10 mg PO DAILY 03/23/21 Unknown History pyridoxine (vitamin B6) 100 mg 100 mg PO DAILY 03/30/21 Unknown History tablet (Vitamin B-6) tamsulosin 0.4 mg capsule 0.4 mg PO BID 03/30/21 Unknown History cetirizine 10 mg capsule 10 mg PO HS #30 caps 07/06/21 Unknown Rx montelukast 10 mg tablet 10 mg PO QPM #90 tabs 10/03/23 Unknown Rx oxycodone 10 mg tablet,crush 10 mg PO Q6H PRN PAIN 01/23/24 Unknown History resistant,extended release 12 hr (OxyContin) Allergy/AdvReac Type Severity Reaction Status Date / Time No Known Allergies Allergy Unverified 10/03/23 08:47 Family History Sister Cancer Breast, Colon Brother Cancer Prostate Surgical History History of total knee replacement (TKR) Social History household members: spouse Smoking Status: Never smoker substance use type: does not use ROS ROS ED ROS Narrative Back pain. Legs tingling. Review of Systems ROS Unobtainable: Denies due to encephalopathy Constitutional Constitutional ED: Denies chills or fever(s) Eyes Eyes: Denies blurry vision ENT ENT ED: Denies ear pain Cardiovascular Cardiovascular: Denies chest pain Respiratory/Chest Respiratory/Chest: Denies dyspnea or dyspnea on exertion Gastrointestinal Gastrointestinal: Denies abdominal pain Genitourinary Genitourinary ED: Denies dysuria or hematuria Musculoskeletal Musculoskeletal: Reports back pain; Denies arthralgias Integumentary Denies abscess or Abrasions Neurologic Neurologic: Denies headache(s) Psychiatric Psychiatric: Denies anxiety or depression Endocrine Endocrinology: Denies cold intolerance Hematologic/Lymphatic Hematologic/Lymphatic: Denies easy bleeding Allergic/Immunologic Allergic/Immunologic ED: Denies mouth swelling or tongue swelling EXAM Physical Exam Narrative Exam Narrative: 70-year-old male sitting upright in bed. Vital signs stable afebrile. H EENT exam unremarkable. Neck nontender. Lungs clear to auscultation bilaterally. Heart regular rhythm no murmur. Abdomen is soft and nontender. Normal bowel sounds no peritoneal signs. Moving all 4 extremities. He does have medial thigh sensation in both lower extremities. He has send sensation in his feet. Dorsi and plantarflexion are intact. He has increased pain with raising either leg. And states his legs feel heavy. There is no cauda equina. There is no saddle anesthesia. Back is well-healed small incisions in his cervical spine are dry and clean. Well-healed to bilateral incisions of his lumbar spine. They are well-healed. There is mild swelling and some bruising. There is no signs of cellulitis or discharge. It is not exquisitely tender. Neurologically he is awake and alert. Answer questions following commands. Again no cauda equina. Normal dorsi plantarflexion. Normal sensation in his lower extremities. Const Vital Signs: 01/23/24 05:37 Temperature 97.1 F L Temperature Source Temporal Pulse Rate 62 Respiratory Rate 18 Blood Pressure 172/70 H Blood Pressure Mean 104 Pulse Ox 96 Oxygen Delivery Method Room Air Positive well nourished and well developed; Negative for cachectic, contractures or unkempt General Appearance ED: well developed; Negative for unkempt, cachectic, contractures or pallor Nutritional Appearance: Negative for cachectic HEENT Reports moist mucous membranes Negative for trauma or tenderness Eyes PERRL and EOMs intact bilaterally General Eye ED: Negative for pale conjunctiva Neck no lymphadenopathy, supple and no JVD General: Negative for tenderness Resp normal respiratory effort and clear to auscultation bilaterally Auscultation: Negative for rales, rhonchi or wheezes Cardio regular rate, regular rhythm, S1 normal heart sound, S2 normal heart sound and no murmurs Palpation: Negative for palpable S3 Rate: Negative for bradycardia or tachycardic Rhythm: Negative for abnormal rhythm Bruits: Negative for other GI normal to inspection, nondistended, normoactive bowel sounds, soft to palpation, non-tender, non-distended and no masses Inspection: Negative for abdominal distention Palpation: Negative for tender, guarding or hepatomegaly Back/Spine Negative for normal to inspection Back/Spine Narrative: Status post back and neck surgery. Incisions are dry and clean. Minimal swelling in his lower back. With some bruising. No signs of infection. No cellulitis. No purulent discharge. Cervical Spine: Negative for cervical spine tenderness Extremity normal to inspection and no clubbing, cyanosis or edema Extremity Narrative: Sensation bilaterally. Normal dorsi plantarflexion. General Extremety ED: Negative for edema or tenderness General Extremity: Negative for edema Neuro oriented x3 and no sensory deficits noted Sensorium / Orientation: alert; Negative for confused, lethargic or stuporous Motor Exam: strength 5/5 throughout Psych mental status grossly normal Appearance: Negative for unkempt Attitude: No agitated Mood & Affect: Negative for depressed, sad or tearful Skin no rashes or lesions noted and no wounds General Skin Exam: Negative for jaundice or pallor Lesions: No lesion noted Rashes: No rashes noted Trauma: Negative for abrasion, puncture or other Wounds: Negative for wounds noted MDM MDM MDM Narrative Medical decision making narrative: 78-year-old male status post lumbar surgery around January 09 in [facility]. Complaining of worsening pain and legs tingling and feel heavy since he bent over this past Monday. Denies any falls or trauma. No fever or chills. No bowel or bladder retention or incontinence. Patient received IV morphine for pain and Zofran to prevent nausea. MRI is not here at this time. They should come in between 7 and 8. I will speak with them to see if it be possible to do a lumbar MRI to evaluate his lumbar spine post surgery. Rule out any type of spinal cord or nerve compression. Repeat exam at 7:10 AM patient is resting comfortably. IV morphine has given him significant pain relief. Repeat exam he still has good motor strength in his lower extremities. He has sensation. There is no cauda equina at this time on exam. They are fitting him into the MRI schedule around 9 AM this morning. Patient be checked out to the morning physician to follow-up his MRI results. And then follow-up with the patient's spine surgeon from [place] if needed. Patient will need to be sent home with pain medication if he is discharged home. History & Record Review Discussion w/independent historian: Patient and Significant other Additional record(s) reviewed:: Prior inpatient record, Prior outpatient record, Prior ED visit and Prior labs Lab Data Attestation: I reviewed the patient's lab results. Lab results narrative: CBC normal. White count of 8. H&H of 14 and 43. Platelets 226. Electrolytes unremarkable gap 6. BUN and creatinine 10 and 0.8. Glucose 149. Labs: Laboratory Results - last 24 hr 01/23/24 05:45 WBC 8.7 RBC 4.74 Hgb 14.8 Hct 43.7 MCV 92.2 MCH 31.2 MCHC 33.9 RDW Std Deviation 44.9 H RDW Coeff of Maggie 13.2 Plt Count 226 MPV 9.5 Immature Gran % (Auto) 0.600 Neut % (Auto) 73.1 H Lymph % (Auto) 18.3 L [place] % (Auto) 7.0 Eos % (Auto) 0.7 Baso % (Auto) 0.3 Absolute Neuts (auto) 6.4 Absolute Lymphs (auto) 1.60 Nucleated RBC % 0 Sodium 139 Potassium 3.5 Chloride 107 Carbon Dioxide 26.0 Anion Gap 6 BUN 10 Creatinine 0.85 Estim Creat Clear Calc 81.98 Est GFR (MDRD) Af Amer 111 Est GFR (MDRD) Non-Af 92 BUN/Creatinine Ratio 11.7 Glucose 149 H Calcium 9.1 Discharge Plan Triage Chief Complaint: Back ED Provider: Sood,Layton Dx/Rx/DC Orders Prescriptions: No Action atorvastatin 10 mg tablet 10 mg PO DAILY tamsulosin 0.4 mg capsule 0.4 mg PO BID pyridoxine (vitamin B6) [Vitamin B-6] 100 mg tablet 100 mg PO DAILY cetirizine 10 mg capsule 10 mg PO HS Qty: 30 11RF montelukast 10 mg tablet 10 mg PO QPM Qty: 90 3RF oxycodone [OxyContin] 10 mg tablet,oral only,ext.rel.12 hr 10 mg PO Q6H PRN Primary Care Provider: Vito Noyola Referrals: Vito Noyola DO [Primary Care Provider] - Print Language: Greenlandic
[2024-01-23] MEDS: Morphine 4 MG/ML Syringe 6 MG IV (06:03)
[2024-01-23] MEDS: Ondansetron 4 MG/2 ML Vial IV ×2 (06:05→10:15)
[2024-01-23 06:27] LABS: Absolute Neutrophil Count 6.4 X10^3/uL (2.0-7.7); Basophil# 0.03 X10^3/uL; Basophil% 0.3 % (0-1); Eosinophil# 0.06 X10^3/uL; Eosinophils% 0.7 % (0-5); Hematocrit 43.7 % (40-54); Hemoglobin 14.8 g/dL (13.0-16.5); Lymphocyte % 18.3 % (19-41); Mean Corp Hgb Conc 33.9 g/dL (32-36); Mean Corpuscular Hgb 31.2 pg (27.0-32.0); Mean Corpuscular Volume 92.2 fL (80-94); Mean Platelet Vol. 9.5 fl (6.2-12.0); Monocyte# 0.61 X10^3/uL; NRBC Flagged by Analyzer 0 % (0-5); Neutrophil # 6.38 X10^3/uL (2.7-7.7); Neutrophil % 73.1 % (47-70); Platelet Count 226 K/mm3 (150-450); RBC Distribution Width CV 13.2 % (11.6-14.6); RBC Distribution Width SD 44.9 fl (35.1-43.9); Red Blood Count 4.74 M/mm3 (4.6-6.2); White Blood Count 8.7 K/mm3 (4.4-11.0)
[2024-01-23 06:41] LABS: Anion Gap 6 (5-15); BUN 10 mg/dL (7-18); BUN/Creat Ratio 11.7 RATIO (10-20); Calcium,Total 9.1 mg/dL (8.5-10.1); Chloride 107 mmol/L (98-107); Creatinine, Serum 0.85 mg/dL (0.70-1.30); EST Glomerular Filtration Rate 92 mL/min (>60); Est Glom Filt Rate - Afr Amer 111 mL/min (>60); Estimated Creatinine Clearance 81.98 ml/min; Glucose 149 mg/dL (74-106); Potassium 3.5 mmol/L (3.5-5.1); Sodium Level 139 mmol/L (136-145)
--- NOTE | 2024-01-23 06:59 | MRI_ITS ---
STUDY: MRI LUMBAR SPINE WITH AND WITHOUT CONTRAST REASON FOR EXAM: Male, 78 years old. LS pain post op back surgery, previous MRI, TWO AXIALS PRE-CONTRAST AND ONE AXIAL POST CONTRAST AND ONE SAG POST CONTRAST TECHNIQUE: Standardized fat and water weighted pulse sequences were obtained in the sagittal and axial planes. 19 mL of IV Clariscan was administered for the contrast portion of the examination. COMPARISON: MRI lumbar spine without contrast 10/02/2023. Lumbar spine radiographs 08/18/2023. FINDINGS: T11-T12: (Sagittal only). Normal endplates. Normal disc height and morphology. Minimal ventral extradural defect due to small posterior bulging annulus. Normal central canal and bilateral intervertebral neural foramina. T12-L1: Normal endplates. Normal disc height. Minimal ventral extradural defect due to posterior bulging annulus is unchanged. No significant facet arthropathy. Normal central canal and bilateral lateral recesses. Normal bilateral intervertebral neural foramina. Normal lumbar lordosis. There is no substantial scoliosis. Normal conus medullaris that terminates at the T12-L1 disc space level. L1-2: Small central Schmorl''s nodes in the vertebral endplates. Normal disc height. Mild ventral extradural defect due to mild degenerative retrolisthesis of L1 on L2. Mild bilateral degenerative facet arthropathy. Normal central canal and bilateral lateral recesses. Normal bilateral intervertebral neural foramina. L2-3: Normal endplates. Minimal disc space height narrowing. Mild ventral extradural defect due to posterior bulging annulus is unchanged. No significant facet arthropathy. Prominent dorsal epidural lipomatosis. Mild to moderate central canal stenosis with an AP canal diameter of 8 mm. Normal bilateral lateral recesses. Normal bilateral intervertebral neural foramina. L3-4: Metallic implant inside the disc space. Metallic rods and pedicular screws causing signal distortion artifacts. Mild degenerative anterolisthesis of L3 on L4 is a new finding. Bilateral degenerative facet arthropathy is partially obscured by metallic rods and pedicular screws. Mild central canal stenosis with an AP canal diameter of 9 mm, previously 8 mm. Normal bilateral lateral recesses. Mild stenosis of the right intervertebral neural foramen is unchanged. Normal left intervertebral neural foramen. L4-5: Metallic implant inside the disc space. Metallic rods and pedicular screws causing signal distortion artifacts. Fluid distention of the facet joints has increased. Normal central canal and bilateral lateral recesses. Normal bilateral intervertebral neural foramina. L5-S1: Normal endplates. Normal disc height, hydration and morphology of hypoplastic disc. Mild degenerative facet arthropathy of the hypoplastic facet joints. Normal central canal and bilateral lateral recesses. Normal bilateral intervertebral neural foramina.. Normal visualized sacral ala. Normal visualized paraspinous soft tissue structures. Following IV contrast administration, there are no abnormally enhancing lesions intradurally and extradurally. MRI/Spine Lumbar W/WO Contrast IMPRESSION: 1. Mild central canal stenosis at L3-L4 disc space level with an AP canal diameter of 9 mm, previously 8 mm following posterior laminectomy decompression fusion surgery. Mild degenerative anterolisthesis of L3 on L4 is a new finding. Mild stenosis of the right L3-L4 intervertebral neural foramen is unchanged. 2. Mild increase fluid distention of bilateral L4-L5 degenerative facet arthropathy. 3. Mild degenerative retrolisthesis of L1 on L2 causing mild ventral extradural defect is unchanged. 4. Small L2-L3 posterior bulging annulus and mild to moderate central canal stenosis with an AP canal diameter of 8 mm. No significant change. 5. No abnormally enhancing lesions intradurally and extradurally. Electronically Signed: Rogelio Kulkarni MD at 10:45 EDT ,
[2024-01-23 07:55] VITALS: BP 138/75; PULSE 53; RESP 16; TEMP 36; O2SAT 95
[2024-01-23 10:07] VITALS: BP 160/77; PULSE 56; RESP 16; O2SAT 95
[2024-01-23] MEDS: oxyCODONE 5 MG Tablet 10 MG PO (10:14)
[2024-01-23 11:40] VITALS: BP 159/72; PULSE 78; RESP 19; TEMP 36.4; O2SAT 97
== END 2024-01-23 11:40 | disposition home or self-care (01) ==
PROVIDERS: Emergency Medicine; Emergency Provider Emergency Medicine; PCP Family Medicine; Visit Provider Emergency Medicine
DX: M54.50 Low back pain, unspecified (principal)
CPT/HCPCS: 72158; 80048; 85025; 96374; 96375; 96376; 99282; A4216; J2405

== ENCOUNTER 2024-02-25 01:28 | Emergency (ER) | payer MEDICARE, OTHER, SELFPAY ==
[2024-02-25 01:29] VITALS: BP 141/81; PULSE 82; RESP 16; TEMP 36.9; O2SAT 94; BMI 32.8
--- NOTE | 2024-02-25 01:38 | EDS_ITS ---
HPI History of Present Illness Chief Complaint: Complaint Informant: patient Narrative Narrative: 2 days of gradual onset suprapubic pain and dysuria. No hematuria. No urinary retention. No nausea or vomiting. Has had some some subjective fevers but has not checked his temperature and here he has a temperature of 98.4. He denies any other systemic symptoms other than back pain related to a lumbar back surgery 1-2 months ago, but this acute pain is not radiating into his back. He states he has had this before is not sure the exact reason, he did have prostate enlargement in the past but did have surgery for it. Prior similar symptoms: Yes (With urinary tract infection) [facility] Medical History Urinary tract infection Diverticulitis Home Medications ?Medication ?Instructions ?Recorded ?Last Taken ?Type atorvastatin 10 mg tablet 10 mg PO DAILY 03/23/21 Unknown History pyridoxine (vitamin B6) 100 mg 100 mg PO DAILY 03/30/21 Unknown History tablet (Vitamin B-6) tamsulosin 0.4 mg capsule 0.4 mg PO BID 03/30/21 Unknown History cetirizine 10 mg capsule 10 mg PO HS #30 caps 07/06/21 Unknown Rx montelukast 10 mg tablet 10 mg PO QPM #90 tabs 10/03/23 Unknown Rx methylprednisolone 4 mg tablets in See Rx Instructions PO .COMPLEX 01/23/24 Unknown Rx a dose pack (Medrol (Juaquin)) #21 tabs oxycodone 10 mg tablet,crush 10 mg PO Q6H PRN PAIN 01/23/24 Unknown History resistant,extended release 12 hr (OxyContin) oxycodone-acetaminophen 5 mg-325 1 tab PO Q6H PRN pain 5 days #20 01/23/24 Unknown Rx mg tablet (Percocet) tabs phenazopyridine 95 mg tablet (Azo 190 mg (2 x 95 mg) PO TID PRN pain 02/25/24 Unknown Rx Urinary Pain Relief) 6 doses #12 tabs sulfamethoxazole 800 1 tab PO BID #10 TABLETS 02/25/24 Unknown Rx mg-trimethoprim 160 mg tablet Allergy/AdvReac Type Severity Reaction Status Date / Time No Known Allergies Allergy Unverified 10/03/23 08:47 Family History Sister Cancer Breast, Colon Brother Cancer Prostate Surgical History History of total knee replacement (TKR) Social History household members: spouse Smoking Status: Never smoker substance use type: does not use ROS ROS ED Constitutional Constitutional ED: Denies chills or fever(s) Eyes Eyes: Denies change in vision or diplopia ENT ENT ED: Denies rhinorrhea or sore throat Cardiovascular Cardiovascular: Denies chest pain or palpitations Respiratory/Chest Respiratory/Chest: Denies cough or dyspnea Gastrointestinal Gastrointestinal: Reports abdominal pain; Denies diarrhea, nausea or vomiting Genitourinary Genitourinary ED: Reports dysuria; Denies hematuria Musculoskeletal Musculoskeletal: Reports back pain; Denies neck pain Integumentary Denies abscess or rash Neurologic Neurologic: Denies headache(s), paresthesias or weakness Psychiatric Psychiatric: Denies anxiety or suicidal thoughts EXAM Physical Exam Const Vital Signs: 02/25/24 01:29 Temperature 98.4 F Temperature Source Oral Pulse Rate 82 Respiratory Rate 16 Blood Pressure 141/81 H Blood Pressure Mean 101 Pulse Ox 94 Oxygen Delivery Method Room Air Positive well nourished and well developed General Appearance ED: well developed and NAD HEENT Reports moist mucous membranes normocephalic and atraumatic Eyes PERRL and EOMs intact bilaterally Neck full ROM and supple Resp normal respiratory effort and clear to auscultation bilaterally Cardio regular rate, regular rhythm and no murmurs GI non-distended GI Narrative: Mild suprapubic tenderness. No guarding or rebound. Auscultation: normoactive bowel sounds Palpation: soft Back/Spine no CVA tenderness General Back: other FROM Extremity normal to inspection General Extremety ED: Negative for edema, pulses abnormal or tenderness General Extremity: Negative for edema or pulses abnormal Neuro oriented x3, CN's II-XII intact bilaterally and no sensory deficits noted Sensorium / Orientation: awake and alert Motor Exam: strength 5/5 throughout Psych mental status grossly normal Skin no rashes or lesions noted and no wounds MDM MDM MDM Narrative Medical decision making narrative: Vital signs are normal he is well-appearing, I do not think he needs blood work or a sepsis workup. We did a urinalysis that confirms suspicion for urinary infection therefore I do not think he needs a CT to look for other pathology such as diverticulitis. Starting him on Bactrim we will send a culture and recommend outpatient follow-up. Also will place him on Pyridium for the pain temporarily. Lab Data Attestation: I reviewed the patient's lab results. Labs: Laboratory Results - last 24 hr 02/25/24 01:56 Urine Color Straw Urine Clarity Sl. Cloudy Urine pH 7.0 Ur Specific Clayton 1.005 Urine Protein Negative Urine Glucose (UA) Normal Urine Ketones Negative Urine Occult Blood 250 H Urine Nitrite Negative Urine Bilirubin Negative Urine Urobilinogen Normal Ur Leukocyte Esterase 500 H Urine RBC 5-10 SEEN Urine WBC 10-25 SEEN Ur Squamous Epith Cells 0 SEEN Urine Bacteria 0 SEEN Urine Mucus 0 SEEN Discharge Plan Triage Chief Complaint: Complaint ED Provider: Bennett Arriaza Dx/Rx/DC Orders Clinical Impression: Acute cystitis without hematuria Instructions: ED Bladder Infection, Male (Adult) Prescriptions: New phenazopyridine [Azo Urinary Pain Relief] 95 mg tablet 190 mg PO TID PRN (Reason: pain) Qty: 12 0RF sulfamethoxazole-trimethoprim 800-160 mg tablet 1 tab PO BID Qty: 10 0RF No Action atorvastatin 10 mg tablet 10 mg PO DAILY tamsulosin 0.4 mg capsule 0.4 mg PO BID pyridoxine (vitamin B6) [Vitamin B-6] 100 mg tablet 100 mg PO DAILY cetirizine 10 mg capsule 10 mg PO HS Qty: 30 11RF montelukast 10 mg tablet 10 mg PO QPM Qty: 90 3RF oxycodone [OxyContin] 10 mg tablet,oral only,ext.rel.12 hr 10 mg PO Q6H PRN oxycodone-acetaminophen [Percocet] 5-325 mg tablet 1 tab PO Q6H PRN (Reason: pain) 5 Days Qty: 20 0RF methylprednisolone [Medrol (Juaquin)] 4 mg tablets,dose pack See Rx Instructions .ROUTE .COMPLEX Qty: 21 0RF Rx Instructions: for 6 days Primary Care Provider: Vito Noyola Referrals: Bernabe Schwarz MD [Med Staff - Active Staff] - (Given recurrent urinary infection, recommend follow-up with urology call for appointment) Dennys,Vito, DO [Primary Care Provider] - Print Language: [place] Timorese Disposition Disposition: Home, Self Care
[2024-02-25 02:00] LABS: Bacteria 0 SEEN /hpf (None Seen); Mucous, Urine 0 SEEN /hpf (<or=2+); Squamous Epithelial Cells - UA 0 SEEN /hpf (0-5)
[2024-02-25 02:02] LABS: Color, Urine Straw (Yellow); Glucose, Dipstick Normal (Normal); Ketone-Dipstick Negative (Negative); Leukocyte Esterase-Dipstick 500 /ul (Negative); Nitrite-Dipstick Negative (Negative); Occult Blood-Urine 250 /ul (Negative); Protein-Dipstick Negative (Negative); Specific Gravity, Urine 1.005 (1.002-1.030); Urine Bilirubin Dipstick Negative (Negative); Urine Clarity Sl. Cloudy (Clear); Urine Urobilinogen Normal (Normal)
[2024-02-25 02:16] LABS: Red Blood Cells-Urine 5-10 SEEN /hpf (0-5); White Blood Cells 10-25 SEEN /hpf (0-5)
[2024-02-25] MEDS: Smz/Tmp Ds Tablet 1 TABLET PO (02:29)
[2024-02-25] MEDS: Phenazopyridine 95 MG Tablet 190 MG PO (02:29)
[2024-02-25 02:32] VITALS: BP 117/90; PULSE 72; RESP 18; TEMP 36.5; O2SAT 99
== END 2024-02-25 02:33 | disposition home or self-care (01) ==
PROVIDERS: Emergency Provider Emergency Medicine; PCP Family Medicine; Visit Provider Emergency Medicine
DX: N30.00 Acute cystitis without hematuria (principal)
CPT/HCPCS: 81001; 87077; 87086; 87088; 87186; 99282

== ENCOUNTER → 2024-02-28 | Outpatient (CLI) | payer MEDICARE, OTHER, SELFPAY ==
[2024-02-28 12:17] LABS: Color, Urine Yellow (Yellow); Glucose, Dipstick Normal (Normal); Ketone-Dipstick Negative (Negative); Leukocyte Esterase-Dipstick 500 /ul (Negative); Nitrite-Dipstick Negative (Negative); Occult Blood-Urine 10 /ul (Negative); Protein-Dipstick 15 mg/dl (Negative); Urine Bilirubin Dipstick Negative (Negative); Urine Clarity Clear (Clear); Urine Urobilinogen Normal (Normal)
== END | disposition home or self-care (01) ==
LOC: LABSPEC 09:22
PROVIDERS: PCP Family Medicine; Referring Provider Family Medicine; Visit Provider Family Medicine
DX: N39.0 Urinary tract infection, site not specified (principal)
CPT/HCPCS: 81002; 87086

== ENCOUNTER → 2025-03-25 | Outpatient (CLI) | payer MEDICARE, OTHER, SELFPAY ==
[2025-03-25 12:52] LABS: Hematocrit 43.6 % (40-54); Hemoglobin 15.3 g/dL (13.0-16.5); Immature Granulocytes Count 0.020 X10^3/uL (0.0-0.0); Mean Corp Hgb Conc 35.1 g/dL (32-36); Mean Corpuscular Volume 90.6 fL (80-94); Mean Platelet Vol. 10.4 fl (6.2-12.0); NRBC Flagged by Analyzer 0 % (0-5); Platelet Count 210 K/mm3 (150-450); RBC Distribution Width CV 13.1 % (11.6-14.6); RBC Distribution Width SD 43.2 fl (35.1-43.9); Red Blood Count 4.81 M/mm3 (4.6-6.2); White Blood Count 6.2 K/mm3 (4.4-11.0)
[2025-03-25 13:36] LABS: AST(SGOT) 39 U/L (<=37); Alanine Aminotransfer ALT/SGPT 46 U/L (<=46); Albumin, Serum 4.3 g/dL (3.4-4.8); Alkaline Phosphatase 69 U/L (40-129); Anion Gap 13 (5-15); BUN 13 mg/dL (4-19); BUN/Creat Ratio 18.3 RATIO (10-20); Calcium,Total 9.3 mg/dL (7.6-11.0); Carbon Dioxide 21.4 mmol/L (21.0-32.0); Chloride 107 mmol/L (98-108); Cholesterol 125 mg/dL (<=200); Globulin 2.3 g/dL (2.2-4.2); Glucose 111 mg/dL (70-99); Low Density Lipoprotein Calc. 65 mg/dL; Potassium 4.1 mmol/L (3.3-5.1); Triglycerides 131 mg/dL; Very Low Density Lipoprotein 26 mg/dL (5-40); cholesterol:hdl ratio screen 3.73
== END | disposition home or self-care (01) ==
LOC: BFHLAB 08:51
PROVIDERS: PCP Family Medicine; Visit Provider Family Medicine
DX: E78.5 Hyperlipidemia, unspecified (principal); R73.9 Hyperglycemia, unspecified; Z51.81 Encounter for therapeutic drug level monitoring
CPT/HCPCS: 36415; 80053; 80061; 83036; 85025